=== PATIENT | female | born 1995 | race Caucasian/White ===

== ENCOUNTER 2017-02-07 17:28 | Emergency (ER) | payer SELFPAY ==
[~2017-02-07] VITALS: Ht 172.7 cm; Wt 59.0 kg
[2017-02-07 17:28] VITALS: BP 110/79
--- NOTE | 2017-02-07 18:20 | ED.ADGEN ---
Past Medical History Past Medical History: Bipolar Additional Past Medical Histor: POLYSUBSTANCE ABUSE Past Surgical History: Other Additional Past Surgical Histo: UNKNOWN Alcohol Use: None Additional Information: WHENEVER I CAN Drug Use: Methamphetamine Adult General Chief Complaint Chief Complaint: ALTERED MENTAL STATUS HPI HPI Patient is a 21 year old female with history of type alert, schizophrenia with chronic psychosis and polysubstance abuse who presents with altered mental status. Patient was found sleeping in a ditch. Patient's alert and oriented to person place with fluent speech but is confused to year. Denies any complaint at this time and states she was sleeping. EMS and police were contacted and will patient was brought to the emergency department for further evaluation. Patient denies current drug use. She states she has previously taken Seroquel but is been out of her dose for quite some time. She does not recall the dose she has. Patient cannot tell or will not tell whether she lives with family or if there is a contact available to me. The ED. She is otherwise calm and cooperative. Review of Systems Review of Systems Review symptoms as per history of present illness. All other review symptoms are negative. Allergies Allergies Allergies Coded Allergies Type Severity Reaction Last Updated Verified No Known Drug Allergies 02/07/17 No Physical Exam Physical Exam Constitutional: Warm, pleasant cooperative, good hygiene. Wearing multiple layers of baggy clothing. HENT: Normocephalic, atraumatic, bilateral external ears normal, oropharynx moist, no oral exudates, nose normal. Eyes: PERRL. Neck: Normal range of motion, no tenderness, supple, no stridor. Cardiovascular:Heart rate regular rhythm, no murmur Pulmonary: Respirations nonlabored, lung sounds clear. Extremities: No tenderness, no cyanosis, no clubbing, ROM intact, no edema. Neurologic: Alert and oriented X 2, normal motor function, normal sensory function, no focal deficits noted. Psychologic: Affect normal. Current Patient Data Vital Signs Vital Signs Date Time Temp Pulse Resp B/P (MAP) Pulse Ox O2 Delivery O2 Flow Rate FiO2 02/07/17 17:28 98.3 118 18 110/79 (89) 97 Room Air 98.3 EKG EKG [] Radiology/Procedures Radiology/Procedures [] Course & Med Decision Making Course & Med Decision Making Pertinent Labs and Imaging studies reviewed. (See chart for details) [Patient offered meal and some to drink while in the emergency department. Attempts were made to reach next of kin for patient to arrange for discharge from the emergency department and to contact pharmacy to refill patient's prescription medication. Family members are unsure of the patient's dose. is requesting discharge from the ED. Recommendations are for the patient to follow-up with daily outpatient mental health care. Dragon Disclaimer Dragon Disclaimer This electronic medical record was generated, in whole or in part, using a voice recognition dictation system. ERLINDA LUNDBERG DO Feb 07, 2017 18:20
== END 2017-02-07 21:13 | disposition home or self-care (01) ==
LOC: ER 17:28
DX: R41.82 Altered mental status, unspecified (principal); F20.9 Schizophrenia, unspecified; F19.10 Other psychoactive substance abuse, uncomplicated; F15.10 Other stimulant abuse, uncomplicated; F31.9 Bipolar disorder, unspecified
CPT/HCPCS: 99284